=== PATIENT | female | born 1975 | race Caucasian/White ===

== ENCOUNTER 2023-09-07 19:41 | Emergency (ER) | payer OTHER ==
[2023-09-07 19:47] VITALS: TEMP 97.9; BMI 27.8
[2023-09-07 21:09] VITALS: BP 107/70; PULSE 117; RESP 15
== END 2023-09-07 21:14 | disposition short-term general hospital (02) ==
LOC: JER 19:41
DX: F10.239 Alcohol dependence with withdrawal, unspecified (principal)
CPT/HCPCS: 99285-25